=== PATIENT | male | born 1985 | race African-American/Black ===

== ENCOUNTER 2016-10-16 18:50 | Emergency (ER) | payer SELFPAY ==
[2016-10-16 19:21] VITALS: BP 126/78
[2016-10-16] MEDS ORDERED: NAPROXEN 500 MG TABLET PO STA (19:34)
--- NOTE | 2016-10-16 19:43 | PHYS DOC ---
Past Medical History Past Medical History: No Pertinent History Past Surgical History: Other Additional Past Surgical Histo: Right shoulder Alcohol Use: Occasionally Drug Use: None Adult General Chief Complaint Chief Complaint: ANKLE PROBLEM HPI HPI Patient is a 31 year old medical presents with moderate left ankle pain specifically on the lateral side that began a couple minutes prior to coming to the ED. Patient states he was playing basketball when he landed wrong on the ankle. Patient states the pain is worse on weightbearing to the left lower extremity. Patient states he has history of left ankle fracture. Review of Systems Review of Systems Constitutional: Denies fever or chills [] Musculoskeletal: Left ankle pain Integument: Denies rash or skin lesions [] Neurologic: Denies headache, focal weakness or sensory changes [] Endocrine: Denies polyuria or polydipsia [] Current Medications Current Medications Current Medications Medications (Trade) Dose Ordered Sig/Isabell Start Time Stop Time Status Last Admin Dose Admin Acetaminophen/ Hydrocodone Bitart (Lortab 5/325) 1 tab 1X ONCE 10/16/16 19:45 10/16/16 19:46 UNV Morphine Sulfate 5 mg 1X ONCE 10/16/16 19:45 10/16/16 19:46 UNV Naproxen (Naprosyn) 500 mg 1X STAT 10/16/16 19:34 10/16/16 19:35 UNV 10/16/16 19:45 500 MG Allergies Allergies Allergies Coded Allergies Type Severity Reaction Last Updated Verified No Known Drug Allergies 10/16/16 No Physical Exam Physical Exam Constitutional: Well developed, well nourished, no acute distress, non-toxic appearance. [] Skin: Warm, dry, no erythema, no rash. [] Back: No tenderness, no CVA tenderness. [] Extremities: Left ankle with moderate soft tissue swelling on the lateral side of the ankle. Tenderness on palpation of the left lateral ankle. Limited range of motion to the left ankle due to pain. Full range of motion to the left toes. +2 left pedal pulse. Cap refill less than 2 seconds left lower extremity. Sensation intact to the left foot and ankle. Neurologic: Alert and oriented X 3, normal motor function, normal sensory function, no focal deficits noted. [] Psychologic: Affect normal, judgement normal, mood normal. [] Current Patient Data Vital Signs Vital Signs Date Time Temp Pulse Resp B/P (MAP) Pulse Ox O2 Delivery O2 Flow Rate FiO2 10/16/16 19:21 98.3 100 18 97 Room Air 98.3 EKG EKG [] Radiology/Procedures Radiology/Procedures [] Course & Med Decision Making Course & Med Decision Making Pertinent Labs and Imaging studies reviewed. (See chart for details) Patient is in the ED left ankle pain after landing on it wrong playing basketball. He states he has history of left ankle fracture. Left ankle x-rays interpreted by Dr. Arora were negative for any acute findings. Hay wrap was applied to the left ankle, air cast was applied, by the net technical architect, neurovascular exam done by me is normal, cap refill less than 2 seconds. Crutches provided. Ice elevation encouraged. Discharged with Ultram for pain. Follow-up with orthopedic doctor in a week if pain continues. This is probably sprained ankle. I ordered hydrocodone and naproxen for patient's pain in the ED. He is refusing hydrocodone stating it doesn't work for him. He was given a shot of morphine in the ED. Dragon Disclaimer Dragon Disclaimer This electronic medical record was generated, in whole or in part, using a voice recognition dictation system. Departure Departure Impression: Primary Impression: Left ankle sprain Disposition: HOME, SELF-CARE Condition: STABLE Referrals: NO PCP (PCP) JAVON CAMPBELL MD Follow-up in the next 1-7 days Patient Instructions: Ankle Sprain, Acute, with Phase I Rehab-SportsMed Additional Instructions: You were seen for left ankle sprain. Ice and elevate the extremity. Take the provided medicines as needed for pain. Follow-up with the provided orthopedic doctor in a week if pain continues. Scripts Naproxen (NAPROXEN) 500 Mg Tablet.dr 1 TAB PO BID, #60 TAB 2 Refills Prov: TARIQ PETERS APRN 10/16/16 Hydrocodone/Apap 5-325 (NORCO 5-325 TABLET) 1 Each Tablet 1 TAB PO Q4-6HRS Y for PAIN, #6 TAB Prov: TARIQ PETERS APRN 10/16/16 Problem Qualifiers Primary Impression: Left ankle sprain Encounter type: initial encounter Involved ligament of ankle: unspecified ligament Qualified Codes: S93.402A - Sprain of unspecified ligament of left ankle, initial encounter TARIQ PETERS APRN Oct 16, 2016 19:43
[2016-10-16] MEDS ORDERED: MORPHINE SULFATE 10 MG/ML VIAL. IM ONE (19:45)
[2016-10-16] MEDS ORDERED: HYDROcodone/APAP 5/325MG 1 TAB TABLET PO ONE (19:45)
[2016-10-16] MEDS ORDERED: NAPR500T8 PO (19:49)
[2016-10-16] MEDS ORDERED: HYDR-971 PO (19:49)
--- NOTE | 2016-10-17 08:01 | RAD ---
Indication injury, pain. AP oblique and lateral views of the left ankle were obtained. There is soft tissue swelling over the lateral malleolus. No bony abnormality is seen
== END 2016-10-16 20:03 | disposition home or self-care (01) ==
LOC: ER 18:50
DX: S93.402A Sprain of unspecified ligament of left ankle, initial encounter (principal); Y93.67 Activity, basketball; X58.XXXA Exposure to other specified factors, initial encounter; Y92.89 Other specified places as the place of occurrence of the external cause; Y99.8 Other external cause status
CPT/HCPCS: 29515; 73610; 96372; 99284; J2270

== ENCOUNTER 2016-12-26 21:28 | Emergency (ER) | payer BC ==
[~2016-12-26] VITALS: Ht 182.9 cm; Wt 81.6 kg
[~2016-12-26 21:28] MED LIST: HYDR-971 PO; NAPR500T8 PO
[2016-12-26] MEDS ORDERED: fentaNYL PF VIAL 100 MCG/2 ML VIAL IM ONE (22:00)
[2016-12-26] MEDS ORDERED: ACETAMINOPHEN 500 MG TABLET PO ONE (22:00)
--- NOTE | 2016-12-26 22:01 | PHYS DOC ---
Past Medical History Past Medical History: No Pertinent History Past Surgical History: Other Additional Past Surgical Histo: Right shoulder Alcohol Use: Occasionally Drug Use: None Adult General Chief Complaint Chief Complaint: SORE THROAT HPI HPI Patient is a 31 year old male who presents with running nose, sore throat, low back pain and 10/10 headache that begun this morning, patient stated this is the worst headache in his life. Patient denies any fever or pain chest pain or shortness of breath. He states he is a smoker. Review of Systems Review of Systems Constitutional: Denies fever or chills [] Eyes: Denies change in visual acuity, redness, or eye pain [] HENT: sore throat nasal congestion Respiratory: Denies cough or shortness of breath [] Cardiovascular: No additional information not addressed in HPI [] GI: Denies abdominal pain, nausea, vomiting, bloody stools or diarrhea [] : Denies dysuria or hematuria [] Musculoskeletal: Denies back pain or joint pain [] Integument: Denies rash or skin lesions [] Neurologic: headache Endocrine: Denies polyuria or polydipsia [] Current Medications Current Medications Current Medications Medications (Trade) Dose Ordered Sig/Isabell Start Time Stop Time Status Last Admin Dose Admin Acetaminophen (Tylenol) 1,000 mg 1X ONCE 12/26/16 22:00 12/26/16 22:01 DC 12/26/16 22:04 1,000 MG Fentanyl Citrate (Fentanyl 2ml Vial) 50 mcg 1X ONCE 12/26/16 22:00 12/26/16 22:01 DC 12/26/16 22:05 50 MCG Allergies Allergies Allergies Coded Allergies Type Severity Reaction Last Updated Verified No Known Drug Allergies 10/16/16 No Physical Exam Physical Exam Constitutional: Well developed, well nourished, no acute distress, non-toxic appearance. [] HENT: Normocephalic, atraumatic, bilateral external ears normal, oropharynx moist, no oral exudates, patient sounds congested nasally. Eyes: PERRLA, EOMI, conjunctiva normal, no discharge. [] Neck: Normal range of motion, no tenderness, supple, no stridor. Negative Kernig and Brudzinski's sign Cardiovascular:Heart rate regular rhythm, no murmur [] Lungs & Thorax: Bilateral breath sounds clear to auscultation [] Abdomen: Bowel sounds normal, soft, no tenderness, no masses, no pulsatile masses. [] Skin: Warm, dry, no erythema, no rash. [] Back: No tenderness, no CVA tenderness. [] Extremities: No tenderness, no cyanosis, no clubbing, ROM intact, no edema. [] Neurologic: Alert and oriented X 3, normal motor function, normal sensory function, no focal deficits noted. Cranial nerves II through XII intact Psychologic: Affect normal, judgement normal, mood normal. [] Current Patient Data Vital Signs Vital Signs Date Time Temp Pulse Resp B/P (MAP) Pulse Ox O2 Delivery O2 Flow Rate FiO2 12/26/16 22:54 80 20 145/103 (117) 99 Room Air 12/26/16 21:35 99.4 99.4 EKG EKG [] Radiology/Procedures Radiology/Procedures []PROCEDURE: CT HEAD WO CONTRAST CT scan of the head without contrast 12/26/2016 Clinical History: Painful headaches.. Technique: Unenhanced, contiguous, 5 mm axial sections were obtained through the head. Findings: The ventricles and sulci are within normal limits in size and configuration. No focal area of abnormal attenuation is seen involving the brain parenchyma. No extra-axial fluid collection is seen. No skull fracture is seen. Impression: Negative study. Electronically signed by: Tk Sarabia MD (12/26/2016 11:02 PM) [facility] DICTATED and SIGNED BY: TK SARABIA MD DATE: 12/26/16 2243 CC: TARIQ PETERS APRN; NO PCP ~ Course & Med Decision Making Course & Med Decision Making Pertinent Labs and Imaging studies reviewed. (See chart for details) This is a 31-year-old male patient presented to the ED today with sore throat coughing nasal congestion low back pain and a headache as well as low back pain that began today. Patient sounds congested nasally he even has a tissue paper in his right nostrils for congestion. He states this is the worst headache in his life rated at 10 out of 10 with no neck pain. Negative rapid strep. Vitals on arrival to the ED temperature 99.4, heart rate 80, respirations 16 on room air, O2 sats 99%, blood pressure 171/103. CT of the head was negative for any acute findings. Patient was given pain medicine in the ED. Blood pressure prior to discharge was 145/103. Talked to this patient about possibility of high blood pressure. He states he comes from a family with history of hypertension. I recommended establishing care with a primary care doctor and following up with the PCP for blood pressure management. He was discharged with Tessalon Perles Ultram. He was encouraged to consider smoking cessation. he was provided return precautions. Meningitis was considered but ruled out with no neck pain and more URI symptoms. Dragon Disclaimer Dragon Disclaimer This electronic medical record was generated, in whole or in part, using a voice recognition dictation system. Departure Departure Impression: Primary Impression: Upper respiratory infection Additional Impressions: Cough Viral pharyngitis Headache High blood pressure Smoking addiction Disposition: 01 HOME, SELF-CARE Condition: STABLE Referrals: NO PCP (PCP) follow up with your doctor as soon as you can Patient Instructions: Cough, Adult, General Headache Without Cause, Managing Your High Blood Pressure, Smoking Cessation, Upper Respiratory Infection, Adult Additional Instructions: You were seen with symptoms consistent of an upper respiratory infection. Take the prescribed medicines as ordered. Upper respiratory infection of viral illnesses that run the own course. Push fluids, maintain good hand hygiene, rest. Follow-up with your own doctor in the next 1-7 days. Your blood pressure was also elevated at 145/103 normal blood pressure is 120/80. We highly recommend you follow-up with your doctor to have it reassessed. Please consider smoking cessation. Scripts Benzonatate (TESSALON PERLE) 100 Mg Capsule 1 CAP PO TID, #30 CAP Prov: TARIQ PETERS APRN 12/26/16 Tramadol Hcl (ULTRAM) 50 Mg Tablet 1 TAB PO Q6HRS, #30 TAB Prov: TARIQ PETERS APRN 12/26/16 Methocarbamol (ROBAXIN) 500 Mg Tablet 1 TAB PO TID, #90 TAB Prov: TARIQ PETERS APRN 12/26/16 Problem Qualifiers Primary Impression: Upper respiratory infection URI type: unspecified URI Qualified Codes: J06.9 - Acute upper respiratory infection, unspecified Additional Impressions: Headache Headache type: unspecified Headache chronicity pattern: acute headache Intractability: not intractable Qualified Codes: R51 - Headache High blood pressure Hypertension type: unspecified Qualified Codes: I10 - Essential (primary) hypertension TARIQ PETERS APRN Dec 26, 2016 22:00
[2016-12-26 22:54] VITALS: BP 145/103
--- NOTE | 2016-12-26 23:05 | RAD ---
CT scan of the head without contrast 12/26/2016 Clinical History: Painful headaches.. Technique: Unenhanced, contiguous, 5 mm axial sections were obtained through the head. Findings: The ventricles and sulci are within normal limits in size and configuration. No focal area of abnormal attenuation is seen involving the brain parenchyma. No extra-axial fluid collection is seen. No skull fracture is seen. Impression: Negative study. Electronically signed by: Tk Martin MD (12/26/2016 11:02 PM) [facility]
[2016-12-26] MEDS ORDERED: METH-37 PO (23:14)
[2016-12-26] MEDS ORDERED: TRAM-48 PO (23:14)
[2016-12-26] MEDS ORDERED: BENZ100C PO (23:14)
[2016-12-27 07:07] LABS: NEGATIVE OBC STREP NEG; POSITIVE OBC STREP POS
== END 2016-12-26 23:22 | disposition home or self-care (01) ==
LOC: ER 21:28
DX: J06.9 Acute upper respiratory infection, unspecified (principal); I10 Essential (primary) hypertension; J02.8 Acute pharyngitis due to other specified organisms; B97.89 Other viral agents as the cause of diseases classified elsewhere; F17.200 Nicotine dependence, unspecified, uncomplicated; M54.5 Low back pain
CPT/HCPCS: 70450; 87070; 87880; 96372; 99285; J3010

== ENCOUNTER 2017-03-19 22:52 | Emergency (ER) | payer BC ==
[~2017-03-19] VITALS: Ht 182.9 cm; Wt 84.8 kg
[~2017-03-19 22:52] MED LIST changes: +BENZ100C PO; +METH-37 PO; +TRAM-48 PO
[2017-03-19] MEDS ORDERED: KETOROLAC 60 MG/2 ML INJ. IM ONE (23:00)
[2017-03-19 23:02] VITALS: BP 138/84
--- NOTE | 2017-03-19 23:05 | PHYS DOC ---
Past Medical History Past Medical History: No Pertinent History Past Surgical History: Other Additional Past Surgical Histo: Right shoulder Alcohol Use: Occasionally Drug Use: None Adult General Chief Complaint Chief Complaint: SHOULDER INJURY HPI HPI Patient is a 32 year old presents to the emergency department with complaints of right shoulder pain. Patient states that in 2012 he tore his labrum and had surgery. He states today while playing basketball he felt his shoulder pop and he has had anterior pain since that time. He said now seeking further evaluation. Review of Systems Review of Systems Constitutional: Denies fever or chills [] Eyes: Denies change in visual acuity, redness, or eye pain [] HENT: Denies nasal congestion or sore throat [] Respiratory: Denies cough or shortness of breath [] Cardiovascular: No additional information not addressed in HPI [] GI: Denies abdominal pain, nausea, vomiting, bloody stools or diarrhea [] : Denies dysuria or hematuria [] Musculoskeletal: Denies back pain or joint pain [] Integument: Right shoulder pain Neurologic: Denies headache, focal weakness or sensory changes [] Endocrine: Denies polyuria or polydipsia [] All other systems were reviewed and found to be within normal limits, except as documented in this note. Current Medications Current Medications Current Medications Medications (Trade) Dose Ordered Sig/Isabell Start Time Stop Time Status Last Admin Dose Admin Ketorolac Tromethamine (Toradol Im) 60 mg 1X ONCE 03/19/17 23:00 03/19/17 23:20 DC 03/19/17 23:14 60 MG Allergies Allergies Allergies Coded Allergies Type Severity Reaction Last Updated Verified No Known Drug Allergies 10/16/16 No Physical Exam Physical Exam Constitutional: Well developed, well nourished, no acute distress, non-toxic appearance. [] Neck: Normal range of motion, no tenderness, supple, no stridor. [] Skin: Warm, dry, no erythema, no rash. [] Extremities: Right shoulder exam: No swelling, no ecchymosis. Full range of motion with diffuse pain. Neurovascular intact distally. Neurologic: Alert and oriented X 3, normal motor function, normal sensory function, no focal deficits noted. [] Current Patient Data Vital Signs Vital Signs Date Time Temp Pulse Resp B/P (MAP) Pulse Ox O2 Delivery O2 Flow Rate FiO2 03/19/17 23:02 98.6 100 18 100 Room Air 98.6 EKG EKG [] Radiology/Procedures Radiology/Procedures Right shoulder x-ray reviewed, no acute bony abnormality[]Sling placed by nursing staff. NVI psot placement, pt tolerated well Course & Med Decision Making Course & Med Decision Making Pertinent Labs and Imaging studies reviewed. (See chart for details) [] Dragon Disclaimer Dragon Disclaimer This electronic medical record was generated, in whole or in part, using a voice recognition dictation system. Departure Departure Impression: Primary Impression: Right shoulder strain Disposition: HOME, SELF-CARE Condition: STABLE Referrals: NO PCP (PCP) JUAN ZACARIAS MD Patient Instructions: Arm Sling Use-Brief, Shoulder Sprain Scripts Naproxen (NAPROSYN) 500 Mg Tablet 500 MG PO BID Y for PAIN, #20 TAB Prov: CALLIE LAUREANO APRN 03/19/17 Problem Qualifiers Primary Impression: Right shoulder strain Encounter type: initial encounter Qualified Codes: S46.911A - Strain of unspecified muscle, fascia and tendon at shoulder and upper arm level, right arm , initial encounter CALLIE LAUREANO APRN Mar 19, 2017 23:05
[2017-03-19] MEDS ORDERED: NAPR-683 PO (23:27)
--- NOTE | 2017-03-20 08:09 | RAD ---
Right shoulder, 3 views, 03/19/2017: History: Shoulder pain after playing basketball No acute fracture or dislocation is identified. A mild chronic impaction type deformity is again noted along the lateral aspect of the humeral head. There is mild spurring along the glenoid rim. IMPRESSION: No acute bony abnormality is detected.
== END 2017-03-19 23:38 | disposition home or self-care (01) ==
LOC: ER 22:52
DX: S46.911A Strain of unspecified muscle, fascia and tendon at shoulder and upper arm level, right arm, initial encounter (principal); X50.9XXA Other and unspecified overexertion or strenuous movements or postures, initial encounter; Y93.89 Activity, other specified; Y99.8 Other external cause status; Y92.89 Other specified places as the place of occurrence of the external cause
CPT/HCPCS: 73030; 96372; 99284; J1885

== ENCOUNTER 2017-10-30 20:08 | Emergency (ER) | payer SELFPAY, BC ==
[2017-10-30] MEDS: IBUPROFEN 600 MG TABLET. PO (21:07)
== END 2017-10-30 21:22 | disposition home or self-care (01) ==
LOC: ER 20:08
DX: M79.675 Pain in left toe(s) (principal)
CPT/HCPCS: 73660; 99284

== ENCOUNTER 2018-01-10 09:04 | Emergency (ER) | payer SELFPAY ==
[~2018-01-10] VITALS: Ht 182.9 cm; Wt 82.6 kg
[~2018-01-10 09:04] MED LIST changes: +METO-239 PO; +NAPR-683 PO
[2018-01-10 09:15] VITALS: BP 155/107
--- NOTE | 2018-01-10 09:29 | PHYS DOC ---
Past Medical History Past Medical History: Other Additional Past Medical Histor: afib Past Surgical History: Other Additional Past Surgical Histo: r shoulder sx Alcohol Use: Occasionally Drug Use: None Adult General Chief Complaint Chief Complaint: WRIST PAIN HPI HPI Patient is a 32 year old male who presents with right hand and right wrist pain from a fall on Monday while trying to pick his brother up at a [employer]. Review of Systems Review of Systems Constitutional: Denies fever or chills [] Eyes: Denies change in visual acuity, redness, or eye pain [] HENT: Denies nasal congestion or sore throat [] Respiratory: Denies cough or shortness of breath [] Cardiovascular: No additional information not addressed in HPI [] GI: Denies abdominal pain, nausea, vomiting, bloody stools or diarrhea [] : Denies dysuria or hematuria [] Musculoskeletal: Denies back pain. Right wrist and posterior hand joint pain [] Integument: Denies rash or skin lesions [] Neurologic: Denies headache, focal weakness or sensory changes [] Endocrine: Denies polyuria or polydipsia [] All other systems were reviewed and found to be within normal limits, except as documented in this note. Current Medications Current Medications Current Medications Medications (Trade) Dose Ordered Sig/Isabell Start Time Stop Time Status Last Admin Dose Admin Acetaminophen/ Hydrocodone Bitart (Lortab 5/325) 1 tab 1X ONCE 01/10/18 10:45 01/10/18 10:46 Allergies Allergies Allergies Coded Allergies Type Severity Reaction Last Updated Verified No Known Drug Allergies 10/16/16 No Physical Exam Physical Exam Constitutional: Well developed, well nourished, no acute distress, non-toxic appearance. [] HENT: Normocephalic, atraumatic, bilateral external ears normal, oropharynx moist, no oral exudates, nose normal. [] Eyes: PERRLA, EOMI, conjunctiva normal, no discharge. [] Neck: Normal range of motion, no tenderness, supple, no stridor. [] Cardiovascular:Heart rate regular rhythm, no murmur [] Lungs & Thorax: Bilateral breath sounds clear to auscultation [] Abdomen: Bowel sounds normal, soft, no tenderness, no masses, no pulsatile masses. [] Skin: Warm, dry, no erythema, no rash. [] Back: No tenderness, no CVA tenderness. [] Extremities: Right posterior and right wrist tenderness, no cyanosis, no clubbing, ROM not intact in right wrist or fingers, Right hand 1-2+ edema. [] Neurologic: Alert and oriented X 3, normal motor function, normal sensory function, no focal deficits noted. [] Psychologic: Affect normal, judgement normal, mood normal. [] Current Patient Data Vital Signs Vital Signs Date Time Temp Pulse Resp B/P (MAP) Pulse Ox O2 Delivery O2 Flow Rate FiO2 01/10/18 09:15 98.2 70 16 155/107 (123) 98 Room Air 98.2 EKG EKG [] Radiology/Procedures Radiology/Procedures Right hand, Right wrist Impressions: [address] [id number] IMAGING REPORT Signed PATIENT: JAMISON HALEY ACCOUNT: [id number] : 1985 LOCATION: ER AGE: 32 SEX: M EXAM STATUS: REG ER ORD. PHYSICIAN: GABY MARQUES APRN REASON: fall, injury PROCEDURE: HAND RIGHT 3V Examination: 3 views of the right hand and right wrist HISTORY: History of fall, pain, swelling COMPARISON: None available Findings: The alignment of the carpal bones grossly appears unremarkable, carpometacarpal joints metacarpophalangeal joints, interphalangeal joints grossly appears unremarkable. There is no obvious acute fracture identified. IMPRESSION: No acute osseous findings. Electronically signed by: Kiet Ocampo MD (01/10/2018 10:03 AM) [id number] DICTATED and SIGNED BY: KIET OCAMPO MD DATE: 01/10/[address] [id number] IMAGING REPORT Signed PATIENT: JAMISON HALEY ACCOUNT: [id number] : 1985 LOCATION: ER AGE: 32 SEX: M EXAM STATUS: REG ER ORD. PHYSICIAN: GABY MARQUES APRN REASON: fall, injury PROCEDURE: WRIST 3V RIGHT Examination: 3 views of the right hand and right wrist HISTORY: History of fall, pain, swelling COMPARISON: None available Findings: The alignment of the carpal bones grossly appears unremarkable, carpometacarpal joints metacarpophalangeal joints, interphalangeal joints grossly appears unremarkable. There is no obvious acute fracture identified. IMPRESSION: No acute osseous findings. Electronically signed by: Kiet Ocampo MD (01/10/2018 10:03 AM) [id number] DICTATED and SIGNED BY: KIET OCAMPO MD DATE: 01/10/18 0958 Course & Med Decision Making Course & Med Decision Making Patient is a 32 year old male who presents with right hand and right wrist pain from a fall landing on the right wrist and hand on Monday while trying to pick his brother up at a [employer]. Upon examination radial pulse is present and cap refill is < 3 seconds. The top of patients hand and sides of patients wrist is tender to palpation. The patient states that he has been taking Ibuprofen and rates his pain at a 8/10 and is nonradiating. ROM is not intact due to pain only. There are no deformities and only 1-2+ edema. Patient states that the swelling has subsided greatly since it happened 4 days ago. Patient can wiggle his fingers and make a half fist. The patients right hand and wrist x ray shows no acute fractures. I have reviewed this patient with Dr Rodríguez and due to the nature of the patients pain in his hand and wrist, there is a suspicion for a scaphoid fracture. The patient will be put in a Thumb spica splint and referred to Ortho for another x ray. I have checked the splint and patient has < 3 cap refill and fingers are pink and not swollen. I can fit one finger between the cast and the patients skin. Staff Physician Addendum: I was working in the ER during the course of this patient's visit. I was available for consultation as needed, but I was not directly involved in the care of this patient. [] Dragon Disclaimer Dragon Disclaimer This electronic medical record was generated, in whole or in part, using a voice recognition dictation system. Departure Departure Impression: Primary Impression: Hand contusion Additional Impression: Wrist contusion Disposition: 01 HOME, SELF-CARE Condition: STABLE Referrals: UNKNOWN PCP NAME (PCP) BRODERICK HOOKS MD Patient Instructions: Hand Contusion, Scaphoid Fracture-SportsMed Additional Instructions: FOLLOW UP WITH ORTHO. TAKE IBUPROFEN AND USE ICE FOR PAIN. Problem Qualifiers Primary Impression: Hand contusion Encounter type: initial encounter Laterality: right Qualified Codes: S60.221A - Contusion of right hand, initial encounter Additional Impression: Wrist contusion Encounter type: initial encounter Laterality: right Qualified Codes: S60.211A - Contusion of right wrist, initial encounter GABY MARQUES APRN Jan 10, 2018 09:29 KAY RODRÍGUEZ MD Jan 10, 2018 10:44
--- NOTE | 2018-01-10 10:06 | RAD ---
Examination: 3 views of the right hand and right wrist HISTORY: History of fall, pain, swelling COMPARISON: None available Findings: The alignment of the carpal bones grossly appears unremarkable, carpometacarpal joints metacarpophalangeal joints, interphalangeal joints grossly appears unremarkable. There is no obvious acute fracture identified. IMPRESSION: No acute osseous findings. Electronically signed by: Kiet Ocampo MD (01/10/2018 10:03 AM) [id number]
[2018-01-10] MEDS: HYDROcodone/APAP 5/325MG 1 TAB TABLET PO ONE (10:45)
== END 2018-01-10 10:49 | disposition home or self-care (01) ==
LOC: ER 09:04
DX: S60.211A Contusion of right wrist, initial encounter (principal); I48.91 Unspecified atrial fibrillation; W19.XXXA Unspecified fall, initial encounter; Y93.89 Activity, other specified; Y92.89 Other specified places as the place of occurrence of the external cause; Y99.8 Other external cause status
CPT/HCPCS: 29125; 73110; 73130; 99284

== ENCOUNTER 2019-07-05 13:39 | Emergency (ER) | payer SELFPAY ==
[~2019-07-05] VITALS: Ht 182.9 cm; Wt 79.5 kg
[~2019-07-05 13:39] MED LIST changes: +HYDR-3164 PO; -HYDR-971 PO
[2019-07-05 13:51] VITALS: BP 175/120
[2019-07-05] MEDS ORDERED: AMOX1TAB61 PO (13:51)
--- NOTE | 2019-07-05 13:52 | PHYS DOC ---
Past Medical History Past Medical History: Other Additional Past Medical Histor: afib (SANDIP PATTERSON APRN) Past Surgical History: Other Additional Past Surgical Histo: r shoulder sx (SANDIP PATTERSON APRN) Smoking Status: Never Smoker Alcohol Use: Occasionally Drug Use: None (SANDIP PATTERSON APRN) Adult General Chief Complaint Chief Complaint: DENTAL PROBLEM HPI HPI Patient is a 34 year old male who presents with dental pain is been ongoing for 2 days. The patient says he try to go to the dentist but they are not taking walk-ins. The patient reports his pain is 10 out of 10 in severity and sharp. Denies additional symptoms. Complete ROS were reviewed and found to be within normal limits, except as documented in the HPI (SANDIP PATTERSON APRN) Review of Systems Review of Systems = (SANDIP PATTERSON APRN) Current Medications Current Medications Current Medications Medications (Trade) Dose Ordered Sig/Isabell Start Time Stop Time Status Last Admin Dose Admin Al Hydroxide/Mg Hydroxide (Mylanta Plus Xs) 30 ml 1X ONCE 07/05/19 14:00 07/05/19 14:01 DC 07/05/19 14:00 30 ML Lidocaine HCl (Viscous Lidocaine) 15 ml 1X ONCE 07/05/19 14:00 07/05/19 14:01 DC 07/05/19 14:00 15 ML (KAY DUMONT MD) Allergies Allergies Allergies Coded Allergies Type Severity Reaction Last Updated Verified No Known Drug Allergies 10/16/16 No (KAY DUMONT MD) Physical Exam Physical Exam Constitutional: Well developed, well nourished, no acute distress, non-toxic appearance. [] HENT: Normocephalic, atraumatic, bilateral external ears normal, oropharynx moist, no oral exudates, nose normal. Tooth # 31 has cavitation with swelling. Neurologic: Alert and oriented X 3, normal motor function, normal sensory function, no focal deficits noted. [] Psychologic: Affect normal, judgment normal, mood normal. [] (SANDIP PATTERSON APRN) Current Patient Data Vital Signs Vital Signs Date Time Temp Pulse Resp B/P (MAP) Pulse Ox O2 Delivery O2 Flow Rate FiO2 07/05/19 13:51 98.6 96 20 175/120 (138) 99 Room Air 98.6 (KAY DUMONT MD) EKG EKG [] (SANDIP PATTERSON APRN) Radiology/Procedures Radiology/Procedures [] (SANDIP PATTERSON APRN) Course & Med Decision Making Course & Med Decision Making Pertinent Labs and Imaging studies reviewed. (See chart for details) Patient is having some facial swelling and will put on Augmentin. Discussed with patient that he is to follow-up with a dentist. Also give dental balls in the ER. (SANDIP PATTERSON APRN) Course & Med Decision Making Staff Physician Addendum: I was working in the ER during the course of this patient's visit. I was available for consultation as needed, but I was not directly involved in the care of this patient. (KAY DUMONT MD) Dragon Disclaimer Dragon Disclaimer This electronic medical record was generated, in whole or in part, using a voice recognition dictation system. (SANDIP PATTERSON APRN) Departure Departure Impression: Primary Impression: Dentalgia Disposition: HOME, SELF-CARE Condition: STABLE Referrals: NO PCP (PCP) Patient Instructions: Carbamide Peroxide dental solution, Dental Caries Additional Instructions: Thank you for visiting [facility]. We appreciate you trusting us with your care. If any additional problems come up don't hesitate to return to visit us. Please follow up with your primary care provider so they can plan additional care if needed and know about the problem that you had. If symptoms worsen come back to the Emergency Department. Any concerning symptoms that start such as chest pain, shortness of air, weakness or numbness on one side of the body, running high fevers or any other concerning symptoms return to the ER. You have been prescribed an antibiotic today to help fight your infection. Please take all of the antibiotic as directed. If after 48 hours the infection is not improving, please return for more care. If the infection worsens, return to ER for additional care. Please follow-up with the dentist as soon as you can. Scripts Amoxicillin/Potassium Clav (AUGMENTIN 875-125 TABLET) 1 Each Tablet 1 TAB PO BID for 10 Days, #20 TAB 0 Refills Prov: SANDIP PATTERSON APRN 07/05/19 SANDIP PATTERSON APRN Jul 05, 2019 13:52 KAY DUMONT MD Jul 05, 2019 16:49
[2019-07-05] MEDS ORDERED: LIDOCAINE 2% VISCOUS 15 ML SOLUTION. SWSW ONE (14:00)
[2019-07-05] MEDS ORDERED: MAG HYDROX/ALUMINUM HYD/SIMETH 30 ML ORAL.SUSP PO ONE (14:00)
== END 2019-07-05 14:07 | disposition home or self-care (01) ==
LOC: ER 13:39
DX: K08.89 Other specified disorders of teeth and supporting structures (principal); R60.0 Localized edema; I48.20 Chronic atrial fibrillation, unspecified; Z98.890 Other specified postprocedural states
CPT/HCPCS: 99283

== ENCOUNTER 2020-06-10 14:18 | Emergency (ER) | payer SELFPAY ==
[~2020-06-10] VITALS: Ht 182.9 cm; Wt 79.5 kg
[~2020-06-10 14:18] MED LIST changes: +AMOX1TAB61 PO
[2020-06-10] MEDS ORDERED: PROCHLORPERAZINE 10 MG/2 ML VIAL. IV ONE (14:45)
[2020-06-10] MEDS ORDERED: ASPIRIN 325 MG TABLET PO ONE (14:45)
[2020-06-10] MEDS ORDERED: KETOROLAC 30 MG/ML VIAL. IVP ONE (14:45)
[2020-06-10] MEDS ORDERED: DEXAMETHASONE SOD PHOS 20 MG/5 ML VIAL. IV ONE (14:45)
[2020-06-10 14:50] LABS: BASO # 0.1 x10^3/uL (0.0-0.2); BASO % 1 % (0-3); EOS % 0 % (0-3); HEMATOCRIT 42.1 % (39.0-53.0); HEMOGLOBIN 14.4 g/dL (13.0-17.5); LYMPH # 1.4 x10^3/uL (1.0-4.8); LYMPH % 19 % (24-48); MEAN CORPUSCULAR HEMOGLOBIN 33 pg (25-35); MEAN CORPUSCULAR HGB CONC 34 g/dL (31-37); MEAN CORPUSCULAR VOLUME 96 fL (79-100); MONO # 0.8 x10^3/uL (0.0-1.1); MONO % 10 % (0-9); NEUT # 5.2 x10^3/uL (1.8-7.7); NEUT % 69 % (31-73); PLATELET COUNT 195 x10^3/uL (140-400); RED BLOOD COUNT 4.41 x10^6/uL (4.30-5.70); RED CELL DISTRIBUTION WIDTH 13.1 % (11.5-14.5); WHITE BLOOD COUNT 7.5 x10^3/uL (4.0-11.0)
[2020-06-10 15:04] LABS: CALCIUM 9.4 mg/dL (8.5-10.1); CREATININE 1.5 mg/dL (0.7-1.3); GFR 65.2; POTASSIUM 3.3 mmol/L (3.5-5.1)
[2020-06-10 15:10] LABS: ALBUMIN 4.2 g/dL (3.4-5.0); ALBUMIN/GLOBULIN RATIO 1.3 (1.0-1.7); MAGNESIUM 2.3 mg/dL (1.8-2.4); TOTAL PROTEIN 7.5 g/dL (6.4-8.2)
--- NOTE | 2020-06-10 15:11 | PHYS DOC ---
Past Medical History Past Medical History: A-Fib, Hypertension, Other Additional Past Medical Histor: afib Past Surgical History: Other Additional Past Surgical Histo: r shoulder sx Smoking Status: Current Every Day Smoker Alcohol Use: Heavy Additional Information: 2-3 TIMES PER WEEK. PATIENT REPORTS "I DRINK BEER AND LIQUOR" Drug Use: None General Adult EDM: Chief Complaint: SHORTNESS OF BREATH HPI: HPI: Patient is a 35 year old male with history of hypertension, A. fib, who presents the ED today complaining of 10 out of 10 frontal headache described as throbbing intermittent, he states headache began yesterday gradually. Patient denies this being the worst headache in his life. States lights and noise exacerbates the headache. States has had similar headaches before. Also complaining of shortness of breath, nausea, vomiting and diarrhea that began last night. Denies any abdominal pain. Denies any fever. He states he has body aches. He also states his A. fib was acting up last night. He states he supposed to be on metoprolol for his A. fib and hypertension but he has not taken this medicine for probably years. He cannot even remember the last time he took the medicine. He states he has no PCP. Denies any chest pain, denies any syncope episodes. Review of Systems: Review of Systems: Constitutional: Denies fever or chills. [] Eyes: Denies change in visual acuity. [] HENT: Denies nasal congestion or sore throat. [] Respiratory: Reports shortness of breath, denies cough Cardiovascular: Denies chest pain or edema. [] GI: Reports nausea and vomiting. Reports diarrhea. Denies abdominal pain, hematemesis or melena : Denies dysuria. [] Musculoskeletal: Denies back pain or joint pain. [] Integument: Denies rash. [] Neurologic: Reports headaches, denies focal weakness or sensory changes. [] Psychiatric: Denies depression or anxiety. [] Heart Score: Risk Factors: Risk Factors: DM, Current or recent (<one month) smoker, HTN, HLP, family history of CAD, obesity. Risk Scores: Score 0 - 3: 2.5% MACE over next 6 weeks - Discharge Home Score 4 - 6: 20.3% MACE over next 6 weeks - Admit for Clinical Observation Score 7 - 10: 72.7% MACE over next 6 weeks - Early Invasive Strategies Current Medications: Current Medications Medications (Trade) Dose Ordered Sig/[facility] Start Time Stop Time Status Last Admin Dose Admin Aspirin (Sarah Aspirin) 325 mg 1X ONCE 06/10/20 14:45 06/10/20 14:46 DC 06/10/20 14:46 325 MG Dexamethasone Sodium Phosphate (Decadron) 10 mg 1X ONCE 06/10/20 14:45 06/10/20 14:46 DC 06/10/20 14:46 10 MG Ketorolac Tromethamine (Toradol 30mg Vial) 30 mg 1X ONCE 06/10/20 14:45 06/10/20 14:46 DC 06/10/20 14:46 30 MG Prochlorperazine Edisylate (Compazine) 10 mg 1X ONCE 06/10/20 14:45 06/10/20 14:46 DC 06/10/20 14:47 10 MG Allergies: Allergies: Allergies Coded Allergies Type Severity Reaction Last Updated Verified No Known Drug Allergies 10/16/16 No Physical Exam: PE: Constitutional: Well developed, well nourished, no acute distress, non-toxic appearance. [] HENT: Normocephalic, atraumatic, bilateral external ears normal, oropharynx moist, no oral exudates, nose normal. [] Eyes: PERRLA, EOMI, conjunctiva normal, no discharge. [] Neck: Normal range of motion, no tenderness, supple, no stridor. [] Cardiovascular:Heart rate regular rhythm, no murmur [] Lungs & Thorax: Bilateral breath sounds clear to auscultation [] Abdomen: Bowel sounds normal, soft, no tenderness, no masses, no pulsatile mas ses. [] Skin: Warm, dry, no erythema, no rash. [] Back: No tenderness, no CVA tenderness. [] Extremities: No tenderness, no cyanosis, no clubbing, ROM intact, no edema. [] Neurologic: Alert and oriented X 3, normal motor function, normal sensory function, no focal deficits noted. Cranial nerves II through XII intact Psychologic: Affect normal, judgement normal, mood normal. [] Current Patient Data: Labs: Laboratory Tests Test 06/10/20 14:36 White Blood Count 7.5 x10^3/uL (4.0-11.0) Red Blood Count 4.41 x10^6/uL (4.30-5.70) Hemoglobin 14.4 g/dL (13.0-17.5) Hematocrit 42.1 % (39.0-53.0) Mean Corpuscular Volume 96 fL (79-100) Mean Corpuscular Hemoglobin 33 pg (25-35) Mean Corpuscular Hemoglobin Concent 34 g/dL (31-37) Red Cell Distribution Width 13.1 % (11.5-14.5) Platelet Count 195 x10^3/uL (140-400) Neutrophils (%) (Auto) 69 % (31-73) Lymphocytes (%) (Auto) 19 % (24-48) L Monocytes (%) (Auto) 10 % (0-9) H Eosinophils (%) (Auto) 0 % (0-3) Basophils (%) (Auto) 1 % (0-3) Neutrophils # (Auto) 5.2 x10^3/uL (1.8-7.7) Lymphocytes # (Auto) 1.4 x10^3/uL (1.0-4.8) Monocytes # (Auto) 0.8 x10^3/uL (0.0-1.1) Eosinophils # (Auto) 0.0 x10^3/uL (0.0-0.7) Basophils # (Auto) 0.1 x10^3/uL (0.0-0.2) Laboratory Tests 06/10/20 14:36 Vital Signs: Vital Signs Date Time Temp Pulse Resp B/P (MAP) Pulse Ox O2 Delivery O2 Flow Rate FiO2 06/10/20 14:22 97.4 61 18 180/117 (138) 97 Room Air 97.4 EKG: EK EKG interpreted by Dr. Wan had a normal sinus rhythm with V1 concerning for possible Brugada syndrome syndrome HR 61 no STEMI. EKG was shared with cardiology Dr. Styles who requested patient to follow-up in his clinic Radiology/Procedures: Radiology/Procedures: []PROCEDURE: PORTABLE CHEST 1V INDICATION: Reason: SOA / Spl. Instructions: / History: COMPARISON: None. FINDINGS: Single view of chest obtained. No focal airspace consolidation. Cardiomediastinal contour unremarkable. No acute osseous abnormality. IMPRESSION: * No focal airspace consolidation or edema. Electronically signed by: Cyndi Fabian MD (06/10/2020 3:08 PM) [id number] DICTATED and SIGNED BY: CYNDI FABIAN MD DATE: 06/10/20 [id number] 0 Course & Med Decision Making: Course & Med Decision Making Pertinent Labs and Imaging studies reviewed. (See chart for details) This is a 35-year-old male patient presenting to the ED today complaining of a frontal headache, shortness of breath, nausea vomiting and diarrhea and his A. fib acting up, symptoms since last night. Vitals on arrival to the ED temperature 97.4, heart rate 61, blood pressure 180/117, respiration 18 on room air, O2 sats 97%, reports history of hypertension and does not remember the last time he took his metoprolol. Patient was given clonidine in the ED. Blood pressure came down to 151/[address] Wan had a normal sinus rhythm with V1 concerning for possible Brugada syndrome syndrome HR 61 no STEMI. EKG was shared with cardiology Dr. Styles who requested patient to follow-up in his clinic Patient was tested for COVID-19. Chest x-ray is negative for any acute findings, CBC with no acute findings, CMP with potassium of 3.3, creatinine of 1.5, BUN of 12. Patient was given oral potassium replacement as well as IV fluids. D-dimer is normal. Discharge to home. Encouraged to follow-up with the primary care doctor and director of retail operations and especially to get him back on his blood pressure medicine. Provided return precautions. Dragon Disclaimer: Dragon Disclaimer: This electronic medical record was generated, in whole or in part, using a voice recognition dictation system. Departure Departure Impression: Primary Impression: Person under investigation for COVID-19 Additional Impressions: Shortness of breath Nausea & vomiting Qualified Codes: R11.2 - Nausea with vomiting, unspecified Diarrhea Qualified Codes: R19.7 - Diarrhea, unspecified Hypertension Qualified Codes: I10 - Essential (primary) hypertension Disposition: 01 DC HOME SELF CARE/HOMELESS Condition: STABLE Referrals: NO PCP (PCP) Follow-up with your own doctor in 1 week MARE STYLES MD Follow-up in 1 week Patient Instructions: Diarrhea, [id number], Hypertension, Nausea and Vomiting Additional Instructions: You were evaluated in the emergency room, we provided your director of retail operations please follow-up with him as soon as possible. Also follow-up with a primary care doctor soon as possible. You were tested for COVID-19, please quarantine yourself until you get results from us Scripts Prochlorperazine Maleate (Compazine) 10 Mg Tablet 1 TAB PO Q6HRS, #30 TAB 0 Refills Prov: TARIQ PETERS APRN 06/10/20 Dicyclomine Hcl (DICYCLOMINE HCL) 20 Mg Tablet 1 TAB PO TID, #30 TAB 1 Refill Prov: TARIQ PETERS APRN 06/10/20 TARIQ PETERS APRN Jun 10, 2020 15:11
[2020-06-10] MEDS ORDERED: cloNIDine HCL 0.1 MG TABLET PO ONE (15:15)
--- NOTE | 2020-06-10 15:25 | EKG ---
[facility] [address] [place] [address] Test Date: 2020-06-10 Test Time: 14:27:41 Pat Name: JAMISON HALEY Department: Room: Gender: M Change Analyst: : 1985 Requested By: TARIQ PETERS Order Number: [id number] Reading MD: Measurements Intervals [place] Rate: 61 P: 38 WI: 148 QRS: 44 QRSD: 94 T: 24 QT: 448 QTc: 453 Interpretive Statements SINUS RHYTHM OTHERWISE NORMAL ECG RI6.02 No previous ECG available for comparison
[2020-06-10] MEDS ORDERED: IV NORMAL SALINE 1000ML BAG 1,000 ML IV ONE (15:45)
[2020-06-10] MEDS ORDERED: DICY20TA3 PO (16:52)
[2020-06-10] MEDS ORDERED: PROC10TA57 PO (16:52)
[2020-06-10 17:15] VITALS: BP 157/108
== END 2020-06-10 17:23 | disposition home or self-care (01) ==
LOC: ER 14:18
DX: R06.02 Shortness of breath (principal); Z20.822 Contact with and (suspected) exposure to COVID-19; R11.2 Nausea with vomiting, unspecified; R19.7 Diarrhea, unspecified; I10 Essential (primary) hypertension; I48.91 Unspecified atrial fibrillation; F17.200 Nicotine dependence, unspecified, uncomplicated
CPT/HCPCS: 36415; 71045; 80053; 83735; 83880; 84443; 84484; 85025; 85379; 93005; 96361; 96374; 96375; 99285; C9803; J0780; J1100; J1885; J7030; U0003

== ENCOUNTER 2021-04-15 14:07 | Emergency (ER) | payer SELFPAY ==
[~2021-04-15] VITALS: Ht 190.5 cm; Wt 89.0 kg
[~2021-04-15 14:07] MED LIST changes: +DICY20TA PO; +PROC10TA57 PO
[2021-04-15 14:50] VITALS: BP 198/125
[2021-04-15] MEDS ORDERED: KETOROLAC 60 MG/2 ML VIAL. IM ONE (15:00)
--- NOTE | 2021-04-15 15:04 | PHYS DOC ---
Past Medical History Past Medical History: A-Fib, Hypertension, Other Additional Past Medical Histor: afib Past Surgical History: Other Additional Past Surgical Histo: r shoulder sx Smoking Status: Current Every Day Smoker Alcohol Use: Heavy Drug Use: None General Adult EDM: Chief Complaint: SHOUDLER HPI: HPI: Patient is a 36-year-old male who presents to the emergency department for pain. Patient reports that he was lifting his arm over his head and felt his shoulder go into his neck. Patient has a history of a right shoulder replacement with hardware and has dislocated it previously but states that it relocated on its own. Last time this occurred was 1 month ago. Patient is reporting pain 10 out of 10. No treatment prior to arrival. Patient denies any chest pain, shortness of breath or dizziness. Review of Systems: Review of Systems: 14 body systems of the review of systems have been reviewed. See HPI for pertinent positive and negative responses, otherwise all other systems are negative, nonpertinent or noncontributory Heart Score: C/O Chest Pain: N/A Risk Factors: Risk Factors: DM, Current or recent (<one month) smoker, HTN, HLP, family history of CAD, obesity. Risk Scores: Score 0 - 3: 2.5% MACE over next 6 weeks - Discharge Home Score 4 - 6: 20.3% MACE over next 6 weeks - Admit for Clinical Observation Score 7 - 10: 72.7% MACE over next 6 weeks - Early Invasive Strategies Allergies: Allergies: Allergies Coded Allergies Type Severity Reaction Last Updated Verified No Known Drug Allergies 10/16/16 No Physical Exam: PE: Constitutional: Well developed, well nourished, no acute distress, non-toxic appearance. [] HENT: Normocephalic, atraumatic, bilateral external ears normal, oropharynx moist, no oral exudates, nose normal. [] Eyes: PERRLA, EOMI, conjunctiva normal, no discharge. [] Neck: Normal range of motion, no tenderness, supple, no stridor. [] Cardiovascular: Normal peripheral perfusion Lungs & Thorax: Normal work of breathing, no tachypnea Abdomen: Soft and flat Skin: Warm, dry, no erythema, no rash. [] Back: Full range of motion Extremities: No tenderness, no cyanosis, no clubbing, ROM intact, no edema. Right shoulder: No obvious deformity, no wounds, decreased range of motion due to pain, neuro intact Neurologic: Alert and oriented X 3, normal motor function, normal sensory function, no focal deficits noted. [] Psychologic: Affect normal, judgement normal, mood normal. [] EKG: EKG: [] Radiology/Procedures: Radiology/Procedures: []PROCEDURE: SHOULDER 2+V RIGHT EXAM: Right shoulder, 3 views. HISTORY: Pain. COMPARISON: 01/05/2021 FINDINGS: 3 views of the right shoulder obtained. There is no acute fracture, dislocation or subluxation. There is inferior glenohumeral joint spurring. IMPRESSION: Mild glenohumeral joint osteoarthritis. Electronically signed by: Rachel Lepe MD (04/15/2021 3:13 PM) [id number] DICTATED and SIGNED BY: RACHEL LEPE MD DATE: 04/15/21 [id number] 0 Course & Med Decision Making: Course & Med Decision Making Pertinent Labs and Imaging studies reviewed. (See chart for details) [] Patient was seen in the emergency department for right shoulder pain. Patient reports that he rates his shoulder above his head he felt like he dislocated his right shoulder. Patient has a history of right shoulder dislocations that have reduced on their own. He also has a history of right shoulder replacement with hardware. X-ray did not show any acute fractures or dislocations or arthritis is seen. Patient's pain was treated in the emergency department he will be discharged home with pain medication, his shoulder was placed in a sling for comfort. 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 He denies any cp, soa, dizziness. I discussed with patient all findings and diagnostic testing as well as the need to follow- up with PCP for further evaluation and treatment or return to the ER if any new or worsening symptoms. Strict return precautions were also discussed at length. Patient voiced understanding and agreement with the plan. Patient is hemodynamically stable at the time of disposition. I discussed with patient all findings and diagnostic testing as well as the need to follow-up with PCP for further evaluation and treatment or return to the ER if any new or worsening symptoms. Strict return precautions were also discussed at length. Patient voiced understanding and agreement with the plan. Patient is hemodynamically stable at the time of disposition. Dragon Disclaimer: Dragon Disclaimer: This electronic medical record was generated, in whole or in part, using a voice recognition dictation system. Departure Departure Impression: Primary Impression: Right shoulder strain Qualified Codes: S46.911A - Strain of unspecified muscle, fascia and tendon at shoulder and upper arm level, right arm, initial encounter Disposition: HOME / SELF CARE / HOMELESS Condition: GOOD Referrals: NO PCP (PCP) Patient Instructions: Shoulder Pain Additional Instructions: You were seen in the emergency department for right shoulder pain. An x-ray was performed and does not appear that your shoulder is dislocated or fractured. You do have arthritis changes in your shoulder. You are being discharged home with pain medication, use this as directed for severe pain. This medication is hydrocodone and Tylenol combination tablet, this medication may cause sedation so do not take need to be alert, driving a vehicle or with alcohol. She was taking additional Tylenol with this medication. Your shoulder was placed in a sling to help with comfort. Use this as needed. Blood pressure was elevated in the emergency department today, please make sure that you take your blood pr essure medication as directed. And take this whenever you get home. Follow-up with your primary care provider tomorrow regarding your ER visit. Please return to the emergency department if you develop any additional injuries, worsening of your pain, chest pain, shortness of breath,, inability to move your arm or decreased sensation in your extremity. Scripts Hydrocodone Bit/Acetaminophen (HYDROCODONE-APAP 5-325 ) 1 Tab Tablet 1 TAB PO PRN Q6HRS PRN for PAIN for 2 Days, #8 TAB 0 Refills Prov: IVELISSE NIX APRN 04/15/21 IVELISSE NIX APRN Apr 15, 2021 15:04
--- NOTE | 2021-04-15 15:15 | RAD ---
EXAM: Right shoulder, 3 views. HISTORY: Pain. COMPARISON: 01/05/2021 FINDINGS: 3 views of the right shoulder obtained. There is no acute fracture, dislocation or subluxat ion. There is inferior glenohumeral joint spurring. IMPRESSION: Mild glenohumeral joint osteoarthritis. Electronically signed by: Rachel Lepe MD (04/15/2021 3:13 PM) [id number]
[2021-04-15] MEDS ORDERED: HYDR-2761 PO (15:29)
== END 2021-04-15 16:16 | disposition home or self-care (01) ==
LOC: ER 14:07
DX: S46.911A Strain of unspecified muscle, fascia and tendon at shoulder and upper arm level, right arm, initial encounter (principal); M19.011 Primary osteoarthritis, right shoulder; I48.91 Unspecified atrial fibrillation; F17.200 Nicotine dependence, unspecified, uncomplicated; I10 Essential (primary) hypertension; X50.0XXA Overexertion from strenuous movement or load, initial encounter; Y93.89 Activity, other specified; Y92.89 Other specified places as the place of occurrence of the external cause; Y99.8 Other external cause status
CPT/HCPCS: 73030; 96372; 99283; J1885